=== PATIENT | male | born 1960 | race Two or more races ===

== ENCOUNTER → 2019-07-05 | Outpatient (CLI) | payer OTHER ==
--- NOTE | 2019-07-05 15:21 | KCIC ---
MRI of the lumbar spine without contrast 07/05/2019 CLINICAL HISTORY: Low back pain with severe right leg pain and right leg numbness and weakness for 6 weeks. TECHNIQUE: Unenhanced T1-weighted and T2-weighted sagittal and axial and inversion recovery sagittal images of the lumbar spine were obtained. FINDINGS: Comparison is made to radiographs of the lumbar spine dated 06/22/2019. Very mild S-shaped curvature of the thoracolumbar spine is seen. Degenerative signal changes are seen involving the L2-3, L3-4, L4-5 and L5-S1 discs. Degenerative signal changes are seen within the marrow surrounding these discs. The conus medullaris is normal morphology, position, and signal characteristics. At the L1-2 and L2-3 disc spaces there are minimal to mild generalized disc bulges. Degenerative changes are seen involving the facet joints bilaterally. There is mild ligamentum flavum hypertrophy bilaterally. These findings do not result in significant central spinal canal or neural foraminal stenosis. At the L3-4 disc space there is a mild generalized disc bulge. Superimposed on this disc bulge is a focal central disc protrusion. This measures 2 mm in AP diameter. Degenerative changes are seen involving the facet joints bilaterally. There are small facet joint effusions bilaterally. There is mild to moderate ligamentum flavum hypertrophy bilaterally. There is prominence of the posterior epidural fat. These findings when combined result in mild central spinal canal stenosis. No neural foraminal stenosis is seen. At the L4-5 disc space there is a mild generalized disc bulge. Superimposed on this disc bulge is a right paracentral focal disc herniation. This extrudes inferiorly and laterally to the right. This measures 7 x 7 x 6 mm in craniocaudal, transverse and AP dimensions. Degenerative changes are seen involving the facet joints bilaterally. There are small facet joint effusions bilaterally. There is moderate ligamentum flavum hypertrophy bilaterally. These findings when combined result in mild to moderate right greater than left central spinal canal stenosis. The disc herniation appears to impinge upon the right L5 nerve root within the right lateral aspect of the central spinal canal. No neural foraminal stenosis is seen. At the L5-S1 disc space there is a minimal generalized disc bulge. Degenerative changes are seen involving the facet joints bilaterally. These findings do not result in significant central spinal canal or neural foraminal stenosis. IMPRESSION: The changes of degenerative disc disease are seen throughout the lumbar spine. These findings result in mild central spinal canal stenosis at L3-4 and mild to moderate right greater than left central spinal canal stenosis at L4-5. No neural foraminal stenosis is seen. At the L4-5 disc space a right paracentral focal disc herniation is seen which extrudes inferiorly and laterally to the right. There is impingement upon the right L5 nerve root within the right lateral aspect of the central spinal canal. Electronically signed by: Zbigniew Howe MD (07/05/2019 3:19 PM) [facility]
== END | disposition home or self-care (01) ==
LOC: KCIC MRI 12:13
PROVIDERS: ATTEND Physician Assistant Medical
DX: M51.27 Other intervertebral disc displacement, lumbosacral region (principal); M51.36 Other intervertebral disc degeneration, lumbar region; M12.88 Other specific arthropathies, not elsewhere classified, other specified site
CPT/HCPCS: 72148

== ENCOUNTER → 2019-08-27 | Outpatient (CLI) | payer OTHER ==
[~2019-08-27] MED LIST: IBUP-1060 PO
[2019-08-27 16:30] LABS: BASO # 0.1 x10^3/uL (0.0-0.2); BASO % 1 % (0-3); EOS # 0.4 x10^3/uL (0.0-0.7); EOS % 5 % (0-3); HEMOGLOBIN 14.7 g/dL (13.0-17.5); LYMPH # 2.2 x10^3/uL (1.0-4.8); LYMPH % 26 % (24-48); MEAN CORPUSCULAR HEMOGLOBIN 35 pg (25-35); MEAN CORPUSCULAR HGB CONC 34 g/dL (31-37); MEAN CORPUSCULAR VOLUME 101 fL (79-100); MONO # 0.4 x10^3/uL (0.0-1.1); MONO % 5 % (0-9); NEUT # 5.3 x10^3/uL (1.8-7.7); NEUT % 63 % (31-73); PLATELET COUNT 188 x10^3/uL (140-400); RED BLOOD COUNT 4.24 x10^6/uL (4.30-5.70); RED CELL DISTRIBUTION WIDTH 14.5 % (11.5-14.5); WHITE BLOOD COUNT 8.4 x10^3/uL (4.0-11.0)
[2019-08-27 16:57] LABS: ALBUMIN/GLOBULIN RATIO 1.1 (1.0-1.7); CALCIUM 9.2 mg/dL (8.5-10.1); CREATININE 0.8 mg/dL (0.7-1.3); GFR 99.3; POTASSIUM 4.1 mmol/L (3.5-5.1); TOTAL BILIRUBIN 0.4 mg/dL (0.2-1.0); TOTAL PROTEIN 7.5 g/dL (6.4-8.2)
== END | disposition home or self-care (01) ==
LOC: SURGPAT 13:44
PROVIDERS: ATTEND Neurological Surgery
DX: Z01.818 Encounter for other preprocedural examination (principal); M51.16 Intervertebral disc disorders with radiculopathy, lumbar region; Z91.030 Bee allergy status
CPT/HCPCS: 36415; 80053; 85025; 87641

== ENCOUNTER → 2019-09-07 | Day surgery (SDC) | payer OTHER ==
--- NOTE | 2019-09-06 15:01 | HP ---
ADMIT DATE: 09/07/2019 HISTORY OF PRESENT ILLNESS: The patient is a pleasant 59-year-old who has a history of episodes of back pain, which normally last a week or two and then resolve. He has had these episodes over the last several years. Beginning about 2 months ago, he developed severe lower back pain along with pain which initially radiate into the buttock, posterior thigh and leg. That has evolved now to include the outer right leg to reach his right foot. He says he is unable to sit upright and must sit leaned over on his left side. He has difficulty sleeping at night because of his pain. He notes weakness in his right foot. The pain is severe. He says most days he spends time in his bed. Virtually any activity increases his pain. He uses oral steroids used to help, but did not any longer. PAST MEDICAL HISTORY: A serious infection. PAST SURGICAL HISTORY: A knee surgery, 2019. FAMILY HISTORY: Noncontributory. SOCIAL HISTORY: Retired. Single. Exercises daily. Denies substance abuse. Drinks alcohol 1-2 times per week. ALLERGIES: BEE STINGS. CURRENT MEDICATIONS: Ibuprofen. REVIEW OF SYSTEMS: A 12-point review of systems was obtained and is noncontributory except for that mentioned above. PHYSICAL EXAMINATION: NEUROSURGERY EXAMINATION: GENERAL APPEARANCE: Alert, pleasant, no acute distress. HEAD: Normocephalic and atraumatic. SKIN: Warm and dry. MUSCULOSKELETAL: Lumbar paraspinal muscle bulk is normal, restricted range of motion of the lumbar spine, normal range of motion of the lower extremities bilaterally, he sits leaning on the left side. There is marked back pain, lower lumbar spine on the right. EXTREMITIES: No clubbing, cyanosis, or edema. NEUROLOGIC: Alert and oriented x 3, normal recent and remote memory. Strength 5/5 except for a right dorsiflexion, which is 4+/5, sensory was intact to light touch on bilateral lower extremities. Reflexes are symmetric in lower extremities. There is a decreased sensation involving the dorsum of the right foot. There was a markedly positive straight leg raising at 10 degrees, relieved by Lasegue's maneuver. Straight leg raising is negative on the left side. IMAGING: I reviewed his lumbar MRI scan. On that study, at L4-L5 on the right, there is a focal inferior disk herniation which is compressing the right L5 nerve root. ASSESSMENT/PLAN: He has a herniated lumbar disc at L4-L5 with marked compression of the right L5 nerve root and severe pain. He failed to improve with lumbar physical therapy. We did discuss surgery,which would include a lumbar microdiscectomy at L4-L5 on the right. We discussed the surgery and the risks. He would like to proceed with surgery. We will make the arrangements. ANTON MORRIS MD DR: JAMI/jalen JOB#: [id number] / [id number] CATHERINE
[~2019-09-07] VITALS: Ht 175.3 cm; Wt 74.8 kg
[~2019-09-07] MED LIST changes: +BACITRACIN 50,000 UNIT in IV NORMAL SALINE 1000ML BAG 1,000 ML IRR ONE; +BUPIVACAINE-EPI 0.5%-1:200000 MPF 30 ML VIAL. ONE; +DESFLURANE > 120 MINUTES IH ONE; +DEXAMETHASONE SOD PHOS 20 MG/5 ML VIAL. ONE; +DOCU-109 PO; +FAMOTIDINE 20 MG/2 ML VIAL ONE; +GELATIN SPONGE SIZE 100. ONE; +GLYCOPYRROLATE 1 MG/5 ML VIAL. ONE; +HYDR-3164 PO; +HYDROcodone/APAP 5/325MG 1 TAB TABLET PO ONE; +HYDROmorphone 2 MG/ML VIAL IV PRN; +IV RINGERS,LACTATED 1000ML 1,000 ML IV SCH; +KETOROLAC 30 MG/ML VIAL. ONE; +KETOROLAC 60 MG/2 ML VIAL. ONE; +LIDOCAINE 1% PF 2 ML VIAL. ID PRN; +LIDOCAINE 2% PF 5 ML VIAL. ONE; +METH-38 PO; +MIDAZOLAM HCL/PF 2 MG/2 ML VIAL. ONE; +MORPHINE SULFATE 2 MG/ML VIAL. IV PRN; +NEOSTIGMINE METHYLSULFATE 5 MG/5 ML SYRINGE. ONE; +ONDANSETRON PF 4 MG/2 ML VIAL. IV PRN; +ONDANSETRON PF 4 MG/2 ML VIAL. ONE; +PHENYLEPHRINE 10 MG/ML VIAL. ONE; +PROCHLORPERAZINE 10 MG/2 ML VIAL. IV PRN; +PROPOFOL 20 ML IV ONE; +PROPOFOL 50 ML IV ONE; +REMIFENTANIL 2 MG VIAL. IV ONE; +ROCURONIUM 50 MG/5 ML VIAL. ONE; +THROMBIN TOPICAL 20,000 UNIT SPRAY.SYRN KIT TP ONE; +fentaNYL PF VIAL 100 MCG/2 ML VIAL IV PRN
--- NOTE | 2019-09-07 09:01 | DISCH ---
DISCHARGE INSTRUCTIONS Condition on Discharge Condition on Discharge: Stable Activity After Discharge Activity Instructions for Disc: Activity as tolerated, Avoid exertion Other activity instructions: no driving for a week Bathing Instructions: Shower-keep dressing dry Lifting Instructions after Dis: No heavy lifting, No pulling or pushing, Do not lift >10 pounds Diet after Discharge Additional Diet Restrictions: resume home diet Wound Incision Care Wound/Incision Care: Ice to area for comfort Other wound/incision instructi: may remove dressing in 48 hours if dry then may shower, no soaking Contacting the after DC Call your doctor for: Concerns you may have Follow-Up Follow up with: Dr. Morris' s nurse in 2 weeks [phone] ANTON MORRIS MD Sep 07, 2019 09:01
[2019-09-07] MEDS: fentaNYL PF VIAL 100 MCG/2 ML VIAL IV PRN ×2 (11:01→11:22)
--- NOTE | 2019-09-07 11:05 | OP ---
DATE OF SURGERY: 09/07/2019 PREOPERATIVE DIAGNOSES: Herniated lumbar disc, L4-L5, right with right lumbar radiculopathy. POSTOPERATIVE DIAGNOSES: Herniated lumbar disc, L4-L5, right with right lumbar radiculopathy. OPERATION PERFORMED: Hemilaminotomy and microdiscectomy L4-L5, right. The operation was done with EMG monitoring, SSEP monitoring, fluoroscopy, microscopic dissection. SURGEON: Dung Morris M.D. MEASUREMENT TECHNICIAN: URBANO Ramírez assisted with the surgery. She assisted with the exposure, the microdiscectomy as well as the closure. OPERATIVE INDICATIONS: The patient is a very pleasant 59-year-old who developed intractable back and right leg pain along with right foot weakness. He improved only slightly with physical therapy and continued to have very significant pain in his right leg and after reviewing the images, I recommended lumbar microsurgery. I spoke with him about the operation, the technique, the expected postoperative course and the risks. He understood and wished to go ahead. DESCRIPTION OF PROCEDURE: Following general endotracheal anesthesia, the patient was positioned prone on the Jean Carlos table. Lumbar region prepped and draped in the standard fashion. [place] hose and AV impulse boots were applied for DVT prophylaxis. The microscope was draped. Fluoroscopy was draped and brought into the field. Monitoring was established. Ancef 2 grams were given less than 1 hour prior to initiation of surgery. Using fluoroscopic guidance, a midline incision was made directly over the L4-L5 interspace. I dissected down through skin and subcutaneous tissue, reflected the paraspinal muscles, placed a [place] microdisk retractor. I brought in the microscope and using the high speed air drill, drilled down a generous hemilaminotomy. I peeled away thickened ligamentum flavum, exposing the dura and then I worked and performed a partial foraminotomy exposing the exiting L5 root. Beneath the root was a subligamentous disc herniation. I gently retracted the root and the dura medially and incised the ligament and annulus and performed a discectomy, removing several small fragments and a much larger subligamentous fragment, which markedly decreased the pressure on the nerve root and freed up the entire dura and exiting root. Once the discectomy was completed, I irrigated copiously with antibiotic solution. I closed the wound in layers with absorbable suture. Hemostasis was excellent. I did use a bipolar cautery as well as bone wax judiciously. I assured myself of excellent hemostasis in the muscle and I closed the wound in layers with absorbable suture. The skin was closed with 4-0 subcuticular stitch. The operation went very well. There were no problems with the monitoring. I was quite pleased with the surgery. DUNG MORRIS MD DR: JAMI/jalen JOB#: [id number] / [id number] CATHERINE
[2019-09-07 11:37] VITALS: BP 124/81
--- NOTE | 2019-09-10 15:52 | PATHOLOGY ---
[facility] Accession Number: [id number] . 01 Material submitted: . vertebral column - LUMBAR DISC AND DECOMPRESSION . 01 Clinical history: . Lumbar herniated disc with radiculopathy . 02 Diagnosis: Segments of fibrocartilaginous, fibroadipose and skeletal muscle tissue and bone, lumbar disc and decompression: - Degenerative changes of fibrocartilaginous tissue. ([facility] 09/10/2019) [facility] 09/10/2019 0919 Local . 02 Comment: There is no evidence of an acute inflammatory process or malignancy. ([facility] 09/10/2019) . 02 Electronically signed: . Lee Melgoza MD, Pathologist NPI- [id number] . 01 Gross description: . The specimen is received in formalin, labeled "Joey Crews, lumbar disc and decompression". Received are multiple segments of pink-orellana, gritty fibrous tissue admixed with minute fragments of bone measuring 3.2 x 2.8 x 0.5 cm in aggregate dimensions. The specimen is submitted representatively in cassette A1, following decalcification. ([facility]; 09/07/2019) QAC/QAC 09/07/2019 1608 Local . 02 Pathologist provided ICD-10: M51.36 . 02 CPT . 939293, [id number] Specimen Comment: A courtesy copy of this report has been sent to [phone], [phone] Specimen Comment: [id number] Specimen Comment: Report sent to / DR GODINEZ Performed at: 01 [facility] [address], [place], [place] [id number] MD Michael Frausto MD Phone: [phone] Performed at: 02 [facility] [address] [place], [place] [id number] MD Lee Melgoza MD Phone: [phone]
== END | disposition home or self-care (01) ==
LOC: SURG 07:04
PROVIDERS: ATTEND Neurological Surgery
DX: M51.16 Intervertebral disc disorders with radiculopathy, lumbar region (principal); Z87.891 Personal history of nicotine dependence; Z87.39 Personal history of other diseases of the musculoskeletal system and connective tissue; Z72.89 Other problems related to lifestyle; Z91.030 Bee allergy status
CPT/HCPCS: 63030; 88304; 88311; 97161; A7015; J0696; J1100; J1885; J2001; J2250; J2405; J2704; J2710; J3010; J3490; J7030; 76000